=== PATIENT | female | born 1980 | race Caucasian/White ===

== ENCOUNTER 2021-09-20 15:33 | Emergency (ER) | payer MEDICAID ==
[~2021-09-20] VITALS: Ht 157.5 cm; Wt 68.9 kg
[2021-09-20 15:41] VITALS: BP 158/93
--- NOTE | 2021-09-20 16:00 | NUR ---
41 Y/O F BIB SELF WITH C/O UTI SYMPTOMS SINCE SUNDAY, STATES SHE BEGAN USING [employer] WITH RELIEF, STATING YESTERDAY PAIN RETURNED AND HAS WORSENED TODAY. REPORTS BACK PAIN, DYSURIA AND HEMATURIA. MEDHX: DENIES ALLERGIES: MAX
[2021-09-20] MEDS ORDERED: NACL 0.9% 1,000 ML IV ONE (16:05)
[2021-09-20] MEDS ORDERED: cefTRIAXone 1,000 MG VIAL ONE (16:25)
--- NOTE | 2021-09-20 16:26 | NUR ---
ULTRASOUND AT BEDSIDE
--- NOTE | 2021-09-20 17:00 | NUR ---
PT C/O OF BACK PAIN, ERMD MADE AWARE
[2021-09-20 17:05] LABS: BASOPHILS % (AUTO) 0.5 % (0.0-2.0); EOSINOPHILS # (AUTO) 0.1 K/uL (0-0.4); EOSINOPHILS % (AUTO) 0.5 % (0.0-4.0); HEMATOCRIT 33.7 % (36-48); HEMOGLOBIN 10.9 g/dL (12.0-16.0); LYMPHOCYTES # (AUTO) 1.6 K/uL (2.5-16.5); LYMPHOCYTES % (AUTO) 15.6 % (20.5-51.1); MEAN CORPUSCULAR HEMOGLOBIN 25 pg (27-31); MEAN CORPUSCULAR HGB CONC 32 g/dL (33-37); MEAN CORPUSCULAR VOLUME 78.4 fL (80-94); MONOCYTES # (AUTO) 0.9 K/uL (0.8-1.0); MONOCYTES % (AUTO) 9.1 % (1.7-9.3); NEUTROPHILS # (AUTO) 7.4 K/uL (1.8-7.7); NEUTROPHILS % (AUTO) 74.3 % (42.2-75.2); PLATELET COUNT (AUTO) 285 K/uL (140-450); RED CELL DISTRIBUTION WIDTH 21.2 % (11.6-13.7)
[2021-09-20] MEDS ORDERED: KETOROLAC 15 MG/ML VIAL IVP ONE (17:05)
[2021-09-20] MEDS ORDERED: CEPH-588 PO (17:06)
[2021-09-20 17:49] LABS: APPEARANCE,URINE CLEAR (CLEAR); BILIRUBIN,URINE NEGATIVE (NEGATIVE); BLOOD, URINE 3+ (NEGATIVE); COLOR,URINE YELLOW (YELLOW); LEUKOCYTE ESTERASE ,URINE 3+ (NEGATIVE); NITRITE, URINE NEGATIVE (NEGATIVE); PH,URINE 6.5 (5.0-9.0); UGLUCOSE NEGATIVE (NEGATIVE)
[2021-09-20 18:50] LABS: CARBON DIOXIDE 26.5 mmol/L (21-32); POTASSIUM 3.5 mmol/L (3.5-5.1)
[2021-09-20 18:51] LABS: CREATININE 0.8 mg/dL (0.6-1.3); TOTAL BILIRUBIN 0.8 mg/dL (0.0-1.0)
[2021-09-20 18:52] LABS: ALBUMIN 3.5 g/dL (3.4-5.0)
[2021-09-20 19:24] VITALS: BP 117/70
[2021-09-20 22:56] LABS: RBC,URINE 0-5 /HPF (0-5); WBC,URINE TOO MANY TO COUNT /HPF (0-5)
--- NOTE | 2021-09-25 19:03 | NUR ---
Note hermes in EDM - 09/25/21 at 1903 by [email or web address] LATE ENTRY. +URINE CULTURE RESULT RECEIVED FROM LAB. SIGNED BY DR GARNER. COPY OF DISCREPANCY BACK LOG IN FOLDER. COPY SENT TO INFECTION CONTROL.
--- NOTE | 2021-09-25 19:03 | NUR ---
LATE ENTRY. +URINE CULTURE RESULT RECEIVED FROM LAB. SIGNED BY DR FLORES. COPY OF DISCREPANCY BACK LOG IN FOLDER. COPY SENT TO INFECTION CONTROL.
== END 2021-09-20 19:24 | disposition home or self-care (01) ==
LOC: MED 15:33
DX: N12 Tubulo-interstitial nephritis, not specified as acute or chronic (principal); F17.210 Nicotine dependence, cigarettes, uncomplicated; Z90.49 Acquired absence of other specified parts of digestive tract
CPT/HCPCS: 36415; 76700; 80053; 81001; 81025; 83690; 85025; 87086; 96365; 96375; 99284; J0696; J1885; J7030; Q0092

== ENCOUNTER 2023-11-21 07:15 | Emergency (ER) | payer MEDICAID, OTHER ==
[~2023-11-21] VITALS: Ht 157.5 cm; Wt 63.5 kg
[~2023-11-21 07:15] MED LIST: CEPH-588 PO
[2023-11-21 07:24] VITALS: BP 129/66; PULSE 81; RESP 18; TEMP 97.4; O2SAT 100
[2023-11-21 07:55] VITALS: O2SAT 100
[2023-11-21] MEDS ORDERED: IBUP-2213 PO (07:59)
[2023-11-21] MEDS ORDERED: MECL-303 PO (07:59)
== END 2023-11-21 08:17 | disposition home or self-care (01) ==
LOC: MED 07:15
DX: H81.10 Benign paroxysmal vertigo, unspecified ear (principal); Z79.1 Long term (current) use of non-steroidal anti-inflammatories (NSAID); Z79.2 Long term (current) use of antibiotics; Z79.899 Other long term (current) drug therapy
CPT/HCPCS: 99282